=== PATIENT | female | born 1975 | race Caucasian/White ===

== ENCOUNTER 2018-08-06 21:17 | Emergency (ER) | payer OTHER ==
[~2018-08-06] VITALS: Ht 167.6 cm; Wt 95.3 kg
[2018-08-06] MEDS ORDERED: CLEOCIN HCL300 MG PO (21:44)
[2018-08-06 21:54] VITALS: BP 124/64
== END 2018-08-06 21:54 | disposition home or self-care (01) ==
LOC: M.ERS 21:17
DX: S50.12XA Contusion of left forearm, initial encounter (principal); S70.12XA Contusion of left thigh, initial encounter; Z88.0 Allergy status to penicillin; Z91.013 Allergy to seafood; W54.0XXA Bitten by dog, initial encounter; Y93.89 Activity, other specified; Y92.89 Other specified places as the place of occurrence of the external cause; Y99.8 Other external cause status

== ENCOUNTER 2020-07-17 00:14 | Emergency (ER) | payer OTHER, MEDICAID ==
[~2020-07-17] VITALS: Ht 170.2 cm; Wt 97.5 kg
[~2020-07-17 00:14] MED LIST: CLEOCIN HCL300 MG PO
[2020-07-17] MEDS ORDERED: BACTRIM DS TAB1 EACH PO (01:43)
[2020-07-17 01:56] VITALS: BP 108/56
== END 2020-07-17 01:56 | disposition home or self-care (01) ==
LOC: M.ERS 00:14
DX: L03.114 Cellulitis of left upper limb (principal); Z88.0 Allergy status to penicillin; Z91.013 Allergy to seafood; Z98.51 Tubal ligation status